=== PATIENT | female | born 2000 | race African-American/Black ===

== ENCOUNTER 2023-06-13 22:05 | Emergency (ER) | payer OTHER ==
[~2023-06-13] VITALS: Ht 165.1 cm; Wt 77.1 kg
[2023-06-13 22:06] VITALS: TEMP 98.6
[2023-06-13] MEDS ORDERED: TRAZ-252 PO (22:15)
[2023-06-14] MEDS ORDERED: ALPRAZolam 0.25 MG TAB PO ONE (00:45)
[2023-06-14 01:27] VITALS: BP 120/68; O2SAT 99
== END 2023-06-14 01:36 | disposition home or self-care (01) ==
LOC: M ED 22:05
DX: F32.A Depression, unspecified (principal); F41.9 Anxiety disorder, unspecified; G47.00 Insomnia, unspecified; F17.290 Nicotine dependence, other tobacco product, uncomplicated; Z81.8 Family history of other mental and behavioral disorders

== ENCOUNTER → 2023-09-06 | Outpatient (CLI) | payer OTHER ==
[~2023-09-06] MED LIST: ISOVUE-300 61% 100ML VIAL As Ordered ONE; LIDOCAINE 1% MDV 20ML VIAL As Ordered ONE; TRAZ-252 PO; TRIAMCINOLONE ACETONIDE SUSP 40MG/ML 1ML VIAL As Ordered ONE
== END ==
LOC: M RAD 10:37
PROVIDERS: ATTEND Physician Assistant Surgical
DX: S73.121A Ischiocapsular ligament sprain of right hip, initial encounter (principal); W18.30XA Fall on same level, unspecified, initial encounter; Y92.009 Unspecified place in unspecified non-institutional (private) residence as the place of occurrence of the external cause
CPT/HCPCS: 20610; 77002; J3301; Q9967